=== PATIENT | female | born 1955 | race American Indian/Alaskan Native ===

== ENCOUNTER 2016-06-15 10:27 | Emergency (ER) | payer MEDICARE, OTHER ==
[2016-06-15 10:50] VITALS: BMI 24.0
[2016-06-15 10:53] VITALS: TEMP 97.8
--- NOTE | 2016-06-15 11:32 | ED PDOC ---
Arrival/HPI - General Chief Complaint: Lower Extremity Problem/Injury Time Seen by Provider: 06/15/16 11:02 Historian: Patient - History of Present Illness Narrative History of Present Illness (Text): 06/15/16 11:29 61 year old female with a past medical history that includes multiple sclerosis presents to the emergency department complaining of her usual multiple sclerosis symptoms for the past two days. She states she recently switched neurologists due to insurance changes. Patient reports intermittent bilateral lower extremity posterior numbness that feels like her usual multiple sclerosis symptoms. No other complaints at this time. Neurologist: Dr. Majano Time/Duration: < week Symptom Onset: Gradual Symptom Course: Unchanged Modifying Factors (Text): None Associated Symptoms (Text): None Past Medical History - Provider Review Nursing Documentation Reviewed: Yes - Infectious Disease Hx of Infectious Diseases: None - Tetanus Immunization Tetanus Immunization: Unknown - Cardiac Hx Cardiac Disorders: No Hx [place]: No Hx Hypertension: Yes - Pulmonary Hx Respiratory Disorders: No Hx Asthma: No - Neurological Hx Neurological Disorder: Yes HX Cerebrovascular Accident: No Hx Multiple Sclerosis: Yes Hx Transient Ischemic Attacks (TIA): No - HEENT Hx HEENT Disorder: No - Renal Hx Renal Disorder: No - Endocrine/Metabolic Hx Endocrine Disorders: Yes Hx Diabetes Mellitus Type 2: Yes - Hematological/Oncological Hx Blood Disorders: No Hx Blood Transfusions: No - Integumentary Hx Dermatological Disorder: No - Musculoskeletal/Rheumatological Hx Musculoskeletal Disorders: Yes Hx Falls: No Hx Fractures: No Hx Unsteady Gait: Yes (PT. HAS MS) Other/Comment: Multiple sclerosis, uses cane - Gastrointestinal Hx Gastrointestinal Disorders: No - Genitourinary/Gynecological Hx Genitourinary Disorders: No - Psychiatric Hx Psychophysiologic Disorder: No Hx Depression: No Hx Emotional Abuse: No Hx Physical Abuse: No Hx Substance Use: No - Past Surgical History Past Surgical History: No Previous - Surgical History Other/Comment: Pt stated she had Left fatty tissue removed FROM UNDER HER ARMS. Colonoscopy-May 2016 - Anesthesia Hx Anesthesia: Yes Hx Anesthesia Reactions: No Hx Malignant Hyperthermia: No - Suicidal Assessment Feels Threatened In Home Enviroment: No Family/Social History - Physician Review Nursing Documentation Reviewed: Yes Family/Social History: Unknown Family HX Smoking Status: Never Smoked Hx Alcohol Use: No Hx Substance Use: No Hx Substance Use Treatment: No Allergies/Home Meds Allergies/Adverse Reactions: Allergies No Known Allergies Allergy (Verified 06/15/16 10:50) Home Medications: Home Meds Medication Instructions Recorded Confirmed Sitagliptin Phosphate [Januvia] 100 mg PO DAILY 05/12/13 05/08/16 Dimethyl Fumarate [Tecfidera] 240 mg PO BID 06/29/14 05/08/16 Atenolol [Tenormin] 25 mg PO BID 01/06/16 05/08/16 Gemfibrozil [Lopid] 600 mg PO BID 01/06/16 05/08/16 metFORMIN [glucOPHAGE] 500 mg PO BID 01/06/16 05/08/16 Gabapentin [Neurontin] 100 mg PO TID 05/08/16 05/08/16 Review of Systems - Physician Review All systems were reviewed & negative as marked: Yes Physical Exam - Physical Exam Narrative Physical Exam (Text): - Review of Systems Constitutional: Normal. absent: Fatigue, Weight Change, Fevers Eyes: Normal ENT: Normal Respiratory: Normal absent: SOB, Cough, Sputum Cardiovascular: Normal absent: Chest pain, Palpitations, Syncope Gastrointestinal: Normal absent: Abdominal pain, Diarrhea, Nausea, Vomiting Genitourinary: Normal. absent: Dysuria, Frequency, Hematuria Musculoskeletal: Normal. absent: Arthralgias, Back Pain, Neck Pain Skin: Normal Neurological: Bilateral lower extremity posterior numbness absent: Focal Weakness Endocrine: Normal Hemo/Lymphatic: Normal Psychiatric: Normal - Physical exam Patient appears age appropriate, speaking full sentences without difficulty - Systems Exam Head: Present: Atraumatic, Normocephalic Pupils: Present: PERRL Extraocular Muscles: Present: EOMI Conjunctiva: Present: Normal Mouth: Present: Moist Mucous Membranes Neck: Present: Normal Range of Motion. No: MIDLINE TENDERNESS, Paraspinal Tenderness Respiratory/Chest: Present: Clear to Auscultation, Good Air Exchange. No: Respiratory Distress, Accessory Muscle Use, Tachypneic Cardiovascular: Present: Regular Rate and Rhythm, Normal S1, S2, Peripheral Pulses Present. No: Murmurs Abdomen: Present: Normal Bowel Sounds, No: Tenderness, Peritoneal Signs, Rebound, Guarding, Distention Back: Present: Normal Inspection. No: Midline Tenderness, Paraspinal Tenderness Upper Extremity: Present: Normal Inspection. No: Cyanosis, Edema Lower Extremity: Present: Normal Inspection. No: Edema Neurological: Present: GCS=15, Speech Normal, cranial nerves II through XII fully intact with no cerebellar abnormality. Ambulates with a cane without difficulty. Skin: Present: Warm, Dry, Normal Color. No: Rashes Lymphatic: Present: OX3, NI, NC Psychiatric: Present: Alert, Oriented x 3, Normal Insight, Normal Concentration. Vital Signs Reviewed: Yes Vital Signs Temp Pulse Resp BP Pulse Ox 06/15/16 12:16 68 18 145/88 100 06/15/16 10:52 97.8 F 60 17 150/76 99 Temperature: Afebrile Blood Pressure: Normal Pulse: Regular Respiratory Rate: Normal Appearance: Positive for: Well-Appearing, Non-Toxic, Comfortable Pain Distress: None Mental Status: Positive for: Alert and Oriented X 3 Medical Decision Making ED Course and Treatment: Impression: 61 year old female with a past medical history of multiple sclerosis presents with her usual symptoms of bilateral lower extremity posterior numbness. On physical exam, patient has no acute findings. Differential Diagnosis include but are not limited to: Paresthesias, MS Plan: -- Decadron -- Discharge to follow up with Neurologist Prior Visits: Notes and results from previous visits were reviewed. Patient last seen in the ED on 05/05/16 with hypoglycemia and discharged home. Progress Notes: 06/15/16 11:[address] Ricardo covering for Dr. Majano who states to give 20 mg Decadron IM and discharge patient home to follow up with the office right away after leaving the emergency room. Patient agrees with plan. Patient stable for discharge. Advised patient to return to the emergency room if symptoms worsen. All questions answered. - Medication Orders Current Medication Orders: Discontinued Medications Dexamethasone (Decadron Inj) 20 mg IM STAT STA Stop: 06/15/16 11:52 Last Admin: 06/15/16 12:01 Dose: 20 MG IM Administration Charges Document 06/15/16 12:01 EQ (Rec: 06/15/16 12:02 EQ [id number] Injection Site MAR Injection Site Left Deltoid Charges for Administration # of IM Administrations 1 - Scribe Statement The provider has reviewed the documentation as recorded by the Derrell Costa Provider Scribe Attestation: All medical record entries made by the Scribe were at my direction and personally dictated by me. I have reviewed the chart and agree that the record accurately reflects my personal performance of the history, physical exam, medical decision making, and the department course for this patient. I have also personally directed, reviewed, and agree with the discharge instructions and disposition. Disposition/Present on Arrival - Present on Arrival Any Indicators Present on Arrival: No History of DVT/PE: No History of Uncontrolled Diabetes: Yes Urinary Catheter: No History of Decub. Ulcer: No History Surgical Site Infection Following: None - Disposition Have Diagnosis and Disposition been Completed?: Yes Diagnosis: Paresthesias Disposition: TRANSF TO SNF Disposition Time: 11:53 Patient Plan: Discharge Condition: FAIR Discharge Instructions (ExitCare): Paresthesia (ED) Additional Instructions: PLEASE REPORT TO DR. RICARDO'S OFFICE RIGHT AWAY ONCE YOU LEAVE THE ER PLEASE RETURN TO THE EMERGENCY DEPARTMENT FOR NEW OR WORSENING SYMPTOMS. RETURN RIGHT AWAY IF YOU CANNOT FOLLOW UP WITH YOUR NEUROLOGIST [address] [place] [address] Referrals: Qi Box MD [Primary Care Provider] - Follow up with primary
[2016-06-15 12:17] VITALS: BP 145/88; PULSE 68; RESP 18; O2SAT 100
== END 2016-06-15 12:31 ==
LOC: ED 10:27
DX: R20.9 Unspecified disturbances of skin sensation (principal); K59.00 Constipation, unspecified; G35 Multiple sclerosis; I10 Essential (primary) hypertension
CPT/HCPCS: 96372; 99283; 99284; J1100

== ENCOUNTER 2016-06-15 16:11 | Emergency (ER) | payer MEDICARE ==
[2016-06-15 16:12] VITALS: BMI 24.0
[2016-06-15 16:32] VITALS: RESP 16; TEMP 97.4; O2SAT 98
[2016-06-15] MEDS ORDERED: Magnesium Citrate Oral SOL (300 ml) PO ONE (16:55)
--- NOTE | 2016-06-15 17:35 | ED PDOC ---
Arrival/HPI - General Chief Complaint: Pain, Chronic Time Seen by Provider: 06/15/16 16:20 Historian: Patient - History of Present Illness Narrative History of Present Illness (Text): 06/15/16 16:20 A 61 year old female, whose past medical history includes MS, presents to the emergency department complaining of a intermittent pinching/numbness sensation to the plantar surface of the bilateral feet. Patient reports similar symptoms once in a while, for which she was told her has neuropathy. Patient has medication at home but did not take them. Patient also complains of feeling constipated for the past 2 days. She notes a small bowel movement 2 days ago. She denies any incontinence, change in ability to walk, or any other complaints at this time. PMD: Dr. Box Time/Duration: Other Symptom Onset: Sudden Symptom Course: Intermittent Quality: Other Activities at Onset: Rest Context: Home Past Medical History - Provider Review Nursing Documentation Reviewed: Yes - Infectious Disease Hx of Infectious Diseases: None - Tetanus Immunization Tetanus Immunization: Unknown - Cardiac Hx Cardiac Disorders: No Hx VA: No Hx Hypertension: Yes - Pulmonary Hx Respiratory Disorders: No Hx Asthma: No - Neurological Hx Neurological Disorder: Yes HX Cerebrovascular Accident: No Hx Multiple Sclerosis: Yes Hx Transient Ischemic Attacks (TIA): No - HEENT Hx HEENT Disorder: No - Renal Hx Renal Disorder: No - Endocrine/Metabolic Hx Endocrine Disorders: Yes Hx Diabetes Mellitus Type 2: Yes - Hematological/Oncological Hx Blood Disorders: No Hx Blood Transfusions: No - Integumentary Hx Dermatological Disorder: No - Musculoskeletal/Rheumatological Hx Musculoskeletal Disorders: Yes Hx Falls: No Hx Fractures: No Hx Unsteady Gait: Yes (PT. HAS MS) Other/Comment: Multiple sclerosis, uses cane - Gastrointestinal Hx Gastrointestinal Disorders: No - Genitourinary/Gynecological Hx Genitourinary Disorders: No - Psychiatric Hx Psychophysiologic Disorder: No Hx Depression: No Hx Emotional Abuse: No Hx Physical Abuse: No Hx Substance Use: No - Past Surgical History Past Surgical History: No Previous - Surgical History Other/Comment: Pt stated she had Left fatty tissue removed FROM UNDER HER ARMS. Colonoscopy-May 2016 - Anesthesia Hx Anesthesia: Yes Hx Anesthesia Reactions: No Hx Malignant Hyperthermia: No - Suicidal Assessment Feels Threatened In Home Enviroment: No Family/Social History - Physician Review Nursing Documentation Reviewed: Yes Family/Social History: No Known Family HX Smoking Status: Never Smoked Hx Alcohol Use: No Hx Substance Use: No Hx Substance Use Treatment: No Allergies/Home Meds Allergies/Adverse Reactions: Allergies No Known Allergies Allergy (Verified 06/15/16 10:50) Home Medications: Home Meds Medication Instructions Recorded Confirmed Sitagliptin Phosphate [Januvia] 100 mg PO DAILY 05/12/13 05/08/16 Dimethyl Fumarate [Tecfidera] 240 mg PO BID 06/29/14 05/08/16 Atenolol [Tenormin] 25 mg PO BID 01/06/16 05/08/16 Gemfibrozil [Lopid] 600 mg PO BID 01/06/16 05/08/16 metFORMIN [glucOPHAGE] 500 mg PO BID 01/06/16 05/08/16 Gabapentin [Neurontin] 100 mg PO TID 05/08/16 05/08/16 Review of Systems - Physician Review All systems were reviewed & negative as marked: Yes - Review of Systems Constitutional: Normal Eyes: Normal ENT: Normal Respiratory: Normal Cardiovascular: Normal Gastrointestinal: Normal Genitourinary Female: Normal Musculoskeletal: Normal Skin: Normal Neurological: Other (numbness to the planter surface of the bilateral feet) Endocrine: Normal Hemo/Lymphatic: Normal Psychiatric: Normal Physical Exam Vital Signs Reviewed: Yes Vital Signs Temp Pulse Resp BP Pulse Ox 06/15/16 16:30 97.4 F L 77 16 148/80 98 Temperature: Afebrile Blood Pressure: Normal Pulse: Regular Respiratory Rate: Normal Appearance: Positive for: Well-Appearing, Non-Toxic, Comfortable Pain Distress: None Mental Status: Positive for: Alert and Oriented X 3 - Systems Exam Head: Present: Atraumatic, Normocephalic Pupils: Present: PERRL Extroacular Muscles: Present: EOMI Conjunctiva: Present: Normal Mouth: Present: Moist Mucous Membranes Neck: Present: Normal Range of Motion Respiratory/Chest: Present: Clear to Auscultation, Good Air Exchange. No: Respiratory Distress, Accessory Muscle Use Cardiovascular: Present: Regular Rate and Rhythm, Normal S1, S2. No: Murmurs Abdomen: Present: Normal Bowel Sounds. No: Tenderness, Distention, Peritoneal Signs Back: Present: Normal Inspection Upper Extremity: Present: Normal Inspection. No: Cyanosis, Edema Lower Extremity: Present: Other (decrease sensation to the bilateral feet). No : Edema Neurological: Present: GCS=15, CN II-XII Intact, Speech Normal, Gait Normal Skin: Present: Warm, Dry, Normal Color. No: Rashes Psychiatric: Present: Alert, Oriented x 3, Normal Insight, Normal Concentration Medical Decision Making ED Course and Treatment: 06/15/16 16:20 Impression: A 61 year old female with numbness to plantar aspect of the bilateral feet and constipation. Differential Diagnosis included but are not limited to: Neuropathy vs Constipation Plan: -- Magnesium Citrate and Gabapentin -- Reassess and disposition Progress Notes: 06/15/16 17:30 On reevaluation the patient feels better and is in no acute distress. Patient's gait is at baseline. I have discussed the results and plan with the patient, who expresses understanding. Patient given the opportunity to ask question, all questions were answered and there is agreement with the plan to discharge the patient home. Patient is stable for discharge. Patient was instructed to follow up with neurologist tomorrow or return if symptoms persist/worsen or new concerning symptoms arise. Patient did go to her Neurologist today but she waited 2 hours and then they couldn't find her chart. They asked her to come back tomorrow. She will follow up - Medication Orders Current Medication Orders: Discontinued Medications Gabapentin (Neurontin) 100 mg PO STAT STA PRN Reason: Protocol Stop: 06/15/16 16:59 Last Admin: 06/15/16 17:19 Dose: 100 MG Behavioural Document 06/15/16 17:19 [place] (Rec: 06/15/16 17:19 [place] [id number]) Maintenance Maintenance Dose Yes Magnesium Citrate (Citrate Of Mag) 300 ml PO ONCE ONE Stop: 06/15/16 16:56 Last Admin: 06/15/16 17:19 Dose: 300 ML - Scribe Statement The provider has reviewed the documentation as recorded by the Scribe Ankit Hernandez Provider Scribe Attestation: All medical record entries made by the Scribe were at my direction and personally dictated by me. I have reviewed the chart and agree that the record accurately reflects my personal performance of the history, physical exam, medical decision making, and the department course for this patient. I have also personally directed, reviewed, and agree with the discharge instructions and disposition. Disposition/Present on Arrival - Present on Arrival Any Indicators Present on Arrival: Yes History of DVT/PE: No History of Uncontrolled Diabetes: Yes Urinary Catheter: No History of Decub. Ulcer: No History Surgical Site Infection Following: None - Disposition Have Diagnosis and Disposition been Completed?: Yes Diagnosis: Paresthesias, Constipation Disposition: HOME/ ROUTINE Disposition Time: 17:30 Patient Plan: Discharge Patient Problems: Current Active Problems Problem Status Diagnosed Constipation Acute Paresthesias Acute Condition: GOOD Discharge Instructions (ExitCare): Constipation (DC), Paresthesia (ED) Prescriptions: Docusate [Colace] 100 mg PO BID #60 cap Referrals: Qi Box MD [Primary Care Provider] - Follow up with primary Marcos Majano MD [Medical Doctor] - Follow up with primary
[2016-06-15 21:52] VITALS: BP 142/80; PULSE 70
== END 2016-06-15 18:12 | disposition home or self-care (01) ==
LOC: ED 16:11
DX: R20.9 Unspecified disturbances of skin sensation (principal); K59.00 Constipation, unspecified; G35 Multiple sclerosis; I10 Essential (primary) hypertension

== ENCOUNTER 2016-08-24 23:02 | Inpatient (IN) | payer MEDICARE, OTHER ==
[2016-08-24 23:12] VITALS: BMI 28.3
[2016-08-25] MEDS ORDERED: Insulin Regular 1 UNITS/0.01 ML ML SC STA ×2 (00:02→02:18)
[2016-08-25] MEDS ORDERED: Sodium Chloride 0.9% 1,000 ML IV STA (00:02)
--- NOTE | 2016-08-25 00:17 | ED PDOC ---
Arrival/HPI - General Chief Complaint: High Blood Sugar Time Seen by Provider: 08/24/16 23:18 Historian: Patient - History of Present Illness Narrative History of Present Illness (Text): 08/25/16 00:13 Elsia Vidales is a 61 year old female, with a history of diabetes on Januvia , hypertension, and multiple sclerosis, presents to the emergency department complaining of elevated blood glucose level. Patient is compliant with her medications. Patient checked her glucose level today because she was "not feeling well". Denies any fever, chills, headache, dizziness, chest pain, shortness of breath, nausea, vomiting, diarrhea, urinary symptoms, or any other complaints at this time. Time/Duration: 24 hours Symptom Onset: Gradual Severity Level: Mild Activities at Onset: Light Context: Home Past Medical History - Provider Review Nursing Documentation Reviewed: Yes - Infectious Disease Hx of Infectious Diseases: None - Tetanus Immunization Tetanus Immunization: Unknown - Cardiac Hx Cardiac Disorders: No Hx MS: No Hx Hypertension: Yes - Pulmonary Hx Respiratory Disorders: No Hx Asthma: No - Neurological Hx Neurological Disorder: Yes HX Cerebrovascular Accident: No Hx Multiple Sclerosis: Yes Hx Transient Ischemic Attacks (TIA): No - HEENT Hx HEENT Disorder: No - Renal Hx Renal Disorder: No - Endocrine/Metabolic Hx Endocrine Disorders: Yes Hx Diabetes Mellitus Type 2: Yes - Hematological/Oncological Hx Blood Disorders: No Hx Blood Transfusions: No - Integumentary Hx Dermatological Disorder: No - Musculoskeletal/Rheumatological Hx Musculoskeletal Disorders: Yes Hx Falls: No Hx Fractures: No Hx Unsteady Gait: Yes (PT. HAS MS) Other/Comment: Multiple sclerosis, uses cane - Gastrointestinal Hx Gastrointestinal Disorders: No - Genitourinary/Gynecological Hx Genitourinary Disorders: No - Psychiatric Hx Psychophysiologic Disorder: No Hx Depression: No Hx Emotional Abuse: No Hx Physical Abuse: No Hx Substance Use: No - Past Surgical History Past Surgical History: No Previous - Surgical History Other/Comment: Pt stated she had Left fatty tissue removed FROM UNDER HER ARMS. Colonoscopy-May 2016 - Anesthesia Hx Anesthesia: Yes Hx Anesthesia Reactions: No Hx Malignant Hyperthermia: No - Suicidal Assessment Feels Threatened In Home Enviroment: No Family/Social History - Physician Review Nursing Documentation Reviewed: Yes Family/Social History: No Known Family HX Smoking Status: Never Smoked Hx Alcohol Use: No Hx Substance Use: No Hx Substance Use Treatment: No Allergies/Home Meds Allergies/Adverse Reactions: Allergies No Known Allergies Allergy (Verified 06/15/16 10:50) Home Medications: Home Meds Medication Instructions Recorded Confirmed Sitagliptin Phosphate [Januvia] 100 mg PO DAILY 05/12/13 05/08/16 Dimethyl Fumarate [Tecfidera] 240 mg PO BID 06/29/14 05/08/16 Atenolol [Tenormin] 25 mg PO BID 01/06/16 05/08/16 Gemfibrozil [Lopid] 600 mg PO BID 01/06/16 05/08/16 metFORMIN [glucOPHAGE] 500 mg PO BID 01/06/16 05/08/16 Gabapentin [Neurontin] 100 mg PO TID 05/08/16 05/08/16 Review of Systems - Physician Review All systems were reviewed & negative as marked: Yes - Review of Systems Constitutional: Normal. absent: Fatigue, Fevers Respiratory: Normal. absent: SOB, Cough, Sputum Cardiovascular: Normal. absent: Chest Pain, Palpitations Gastrointestinal: Normal. absent: Abdominal Pain, Diarrhea, Nausea, Vomiting Genitourinary Female: Normal Neurological: Normal. absent: Headache, Dizziness Psychiatric: Normal Physical Exam Vital Signs Reviewed: Yes Vital Signs Temp Pulse Resp BP Pulse Ox 08/24/16 23:10 99.2 F 74 18 155/94 H 98 Temperature: Afebrile Blood Pressure: Normal Pulse: Regular Respiratory Rate: Normal Appearance: Positive for: Well-Appearing, Non-Toxic, Comfortable Pain Distress: None Mental Status: Positive for: Alert and Oriented X 3 Finger Stick Blood Glucose: 454 - Systems Exam Head: Present: Atraumatic, Normocephalic Pupils: Present: PERRL Conjunctiva: Present: Normal Mouth: Present: Moist Mucous Membranes Respiratory/Chest: Present: Clear to Auscultation, Good Air Exchange. No: Respiratory Distress, Accessory Muscle Use Cardiovascular: Present: Regular Rate and Rhythm, Normal S1, S2. No: Murmurs Abdomen: Present: Normal Bowel Sounds. No: Tenderness, Distention, Peritoneal Signs Upper Extremity: Present: Normal Inspection. No: Cyanosis, Edema Lower Extremity: Present: Normal Inspection. No: Edema Neurological: Present: GCS=15, CN II-XII Intact, Speech Normal, Motor Func Grossly Intact, Normal Sensory Function Skin: Present: Warm, Dry, Normal Color. No: Rashes Psychiatric: Present: Alert, Oriented x 3, Normal Insight, Normal Concentration Medical Decision Making ED Course and Treatment: 08/25/16 00:19 Impression: A 61 year old female who presents to the emergency department complaining of elevated blood glucose level. Differential Diagnosis included but are not limited to: hyperglycemia Plan: -- Labs -- EKG -- Labs, cardiac enzymes -- Chest X-ray -- Insulin -- IV fluids -- Urinalysis -- Reassess and disposition Progress Notes: 08/25/16 02:12 Case discussed with who is aware and agrees with the plan to observe patient at remote telemetry. Accepts patient under her service. - Lab Interpretations Lab Results: 08/25/16 00:39 08/25/16 00:49 Lab Results 08/25/16 00:49: Sodium 136, Chloride 94 L, Potassium 4.2, Carbon Dioxide 31, Anion Gap 15, BUN 9, Creatinine 0.8, Est GFR ( Amer) > 60, Est GFR (Non- Af Amer) > 60, Random Glucose 470 H* D, Calcium 9.4, Total Bilirubin 0.6, AST 20 , ALT 20, Alkaline Phosphatase 102, Lactate Dehydrogenase 514, Total Creatine Kinase 50, Troponin I < 0.01, Total Protein 8.1, Albumin 4.5, Globulin 3.7, Albumin/Globulin Ratio 1.2 08/25/16 00:39: pO2 41, VBG pH 7.32, VBG pCO2 66.0 H*, VBG HCO3 34.0 H, VBG Total CO2 36.0 H, VBG O2 Sat (Calc) 75.3 H, VBG Base Excess 5.7 H, VBG Potassium 4.4, Sodium 136.0, Chloride 98.0, Glucose 469 H*, Lactate 2.0, FiO2 21.0, Venous Blood Potassium 4.4 08/25/16 00:39: WBC 8.6 D, RBC 4.17, Hgb 11.9 L, Hct 34.7 L, MCV 83.2, MCH 28.5 , MCHC 34.3, RDW 13.8, Plt Count 178, MPV 12.2 H 08/25/16 00:39: PT 11.0, INR 1.02, APTT 28.0 I have reviewed the lab results: Yes - RAD Interpretation Narrative RAD Interpretations (Text): 08/25/16 01:47 CXR- No acute process Radiology Orders: 08/25/16 00:01 CHEST PORTABLE [RAD] Stat Data Technical Lead: ED Physician - EKG Interpretation EKG Interpretation (Text): 08/25/16 01:47 NSR@ [id number] Anterolateral T wave changes Interpreted by ED Physician: Yes Type: 12 lead EKG - Medication Orders Current Medication Orders: Discontinued Medications Sodium Chloride (Sodium Chloride 0.9%) 1,000 mls @ 999 mls/hr IV .Q1H1M STA Stop: 08/25/16 01:02 Last Admin: 08/25/16 00:29 Dose: 999 mls/hr Insulin Human Regular (Humulin R) 5 units SC STAT STA Stop: 08/25/16 00:03 Last Admin: 08/25/16 00:28 Dose: 5 units - Scribe Statement The provider has reviewed the documentation as recorded by the Madelynibe Prashanth Lewis Provider Attestation: Provider Scribe Attestation: All medical record entries made by the Scribe were at my direction and personally dictated by me. I have reviewed the chart and agree that the record accurately reflects my personal performance of the history, physical exam, medical decision making, and the department course for this patient. I have also personally directed, reviewed, and agree with the discharge instructions and disposition. Disposition/Present on Arrival - Present on Arrival Any Indicators Present on Arrival: No History of DVT/PE: No History of Uncontrolled Diabetes: Yes Urinary Catheter: No History of Decub. Ulcer: No History Surgical Site Infection Following: None - Disposition Have Diagnosis and Disposition been Completed?: Yes Diagnosis: Uncontrolled diabetes mellitus Disposition: HOSPITALIZED Disposition Time: 02:11 Patient Plan: Observation Patient Problems: Current Active Problems Problem Status Onset Uncontrolled diabetes mellitus Acute Condition: STABLE Referrals: Qi Box MD [Primary Care Provider] - Follow up with primary
[2016-08-25 00:56] LABS: VENOUS BLOOD GAS BASE EXCESS 5.7 mmol/L (0.0-2.0); VENOUS BLOOD PH 7.32 (7.32-7.43)
[2016-08-25 01:07] LABS: HEMATOCRIT 34.7 % (36.0-48.0); MEAN CELL VOLUME 83.2 fL (80.0-105.0); MEAN CORPUSCULAR HEMOGLOBIN 28.5 pg (25.0-35.0); MEAN CORPUSCULAR HGB CONC 34.3 g/dl (31.0-37.0); MEAN PLATELET VOLUME 12.2 fl (7.0-11.0); RED CELL DISTRIBUTION WIDTH 13.8 % (11.5-14.5); WHITE BLOOD COUNT 8.6 10^3/ul (4.5-11.0)
[2016-08-25 01:12] LABS: INR 1.02 (0.93-1.08)
[2016-08-25 01:15] LABS: ALB/GLOB RATIO 1.2 (1.1-1.8); ALKALINE PHOSPHATASE 102 U/L (38-133); ALT/SGPT 20 U/L (7-56); AST/SGOT 20 U/L (15-39); BILIRUBIN,TOTAL 0.6 mg/dL (0.2-1.3); BLOOD UREA NITROGEN 9 mg/dL (7-21); CALCIUM 9.4 mg/dL (8.4-10.5); CARBON DIOXIDE 31 mmol/L (21-33); CHLORIDE 94 mmol/L (95-110); GFR AFRICAN-AMERICAN > 60; POTASSIUM 4.2 mmol/L (3.6-5.0); SODIUM 136 mmol/L (132-148); TOTAL PROTEIN 8.1 g/dL (5.8-8.3)
[2016-08-25 01:19] LABS: GLUCOSE,RANDOM 470 mg/dL (70-110)
[2016-08-25 01:33] LABS: TROPONIN I < 0.01 ng/mL
[2016-08-25] MEDS ORDERED: Pneumococcal 23-Valent Vaccine IM ONE (04:39)
[2016-08-25 05:39] LABS: URINE BILIRUBIN NEGATIVE (NEGATIVE); URINE BLOOD NEGATIVE (NEGATIVE); URINE GLUCOSE (UA) >=1000 mg/dL (NEGATIVE); URINE KETONE NEGATIVE (NEGATIVE); URINE LEUKOCYTE ESTERASE NEGATIVE Leu/uL (NEGATIVE); URINE PROTEIN NEGATIVE mg/dL (<30 mg/dL); URINE UROBILINOGEN 0.2 E.U./dL (<1 E.U./dL)
[2016-08-25 05:55] LABS: URINE APPEARANCE CLEAR (CLEAR); URINE COLOR YELLOW (YELLOW)
[2016-08-25] MEDS: Insulin Reg-MEDIUM-Coverage SC SCH ×3 (07:30→17:45)
--- NOTE | 2016-08-25 08:32 | RAD ---
HISTORY: fever COMPARISON: 01/08/2016 FINDINGS: LUNGS: No active pulmonary disease. PLEURA: No significant pleural effusion identified, no pneumothorax apparent. CARDIOVASCULAR: Normal. OSSEOUS STRUCTURES: No significant abnormalities. VISUALIZED UPPER ABDOMEN: Normal. OTHER FINDINGS: None. IMPRESSION: No active disease.
[2016-08-25] MEDS: DIMETHYL FUMARATE 240 MG PO SCH ×2 (10:00→17:54)
[2016-08-25] MEDS: cefTRIAXone 1 gm 1 GM/100 ML BAG IVPB SCH (10:00)
--- NOTE | 2016-08-25 10:03 | CARD ---
APPROVED REPORT EKG Measurement Heart [id number] MD [id number] <Conclusion> Normal sinus rhythm T wave abnormality, consider anterolateral ischemia
--- NOTE | 2016-08-25 13:18 | CON ---
DATE: 08/25/2016 REASON FOR CONSULTATION: Cardiac evaluation, admitted with uncontrolled diabetes, abnormal EKG. BRIEF CLINICAL HISTORY: This is a 61-year-old obese female morbidly with past medical history of tyler betes for many years, 20 years; history of hypertension 20 years and multiple sclerosis, presented wi th uncontrolled diabetes. Mother is at the bedside. Denies any chest pain, shortness of breath, any palpitation. PAST HISTORY: Significant for diabetes, hypertension, hyperlipidemia. SOCIAL HISTORY: Denies any smoking. Denies any history of alcohol abuse. ALLERGIES: No known drug allergy. PAST SURGICAL HISTORY: Nothing significant. REVIEW OF SYSTEMS: As per HPI. Complained of some shortness of breath, dyspnea on exertion. PHYSICAL EXAMINATION: As follows: VITAL SIGNS: Temperature afebrile, heart rate 60, blood pressure 157/90. HEENT: PERRLA, intact. NECK: Supple. No carotid bruits. No thyromegaly. CHEST: Clear to auscultation. HEART: S1, S2 regular. ABDOMEN: Soft. EXTREMITIES: Clubbing and cyanosis negative. BLOOD WORKUP: As follows: WBC 8.6, hemoglobin ____, hematocrit 34.6, platelet count 178. Chemistry shows sodium 136, potassium 4.2, chloride 94, carbon dioxide ____, anion gap of 15, BUN 9, creatinin e 0.8. Blood sugar 470. Troponin 0.01. EKG shows normal sinus, T-wave inversion in V2, V6 and ante rior precordial lead. IMPRESSION: Abnormal T-wave anterior precordial lead, ____ suggestive of ischemia, rule out underlyi ng coronary artery disease. Diabetes, obesity, uncontrolled diabetes, blood sugar 470, hypertension uncontrolled. Multiple risk factors for coronary artery disease. Suggest echo and stress test yamilet conde. Discussed with mother and the patient. ____ lipid profile, TSH, hemoglobin A1c. Further recom mendations depending upon hospital course. We will follow with you. Thank you, Dr. Box, for providing the opportunity in taking care of the patient. We will add baby aspirin in the current regimen as well and we will add CLARIBEL inhibitors and low dose o f beta lj. We will follow with you. Mohammad Blaine MD cc: [id number] TT: 08/25/2016 13:18:01 Confirmation # [id number] Dictation # [id number] sn
--- NOTE | 2016-08-25 14:22 | CON ---
DATE: 08/25/2016 HISTORY OF PRESENT ILLNESS: Shortly, the patient is a 61-year-old -[place] female with multi ple medical issues including diabetes, hypertension, multiple sclerosis. The patient came to the [facility] Room complaining of elevated blood sugar, as well as patient was in a lethargic state and was not feeling well. Psych consult was called for evaluation of possible depressive symptoms. The bryce ent was seen and evaluated. The patient denied being depressed, reported that she lost her boyfriend of 19 years last month. She is still in a grieving process, but patient denied changing in appetite and sleep. Denied thoughts of dying, denied thoughts of killing herself. The patient denied being depressed. The patient denied feeling anxious. The patient reported no psychotic symptoms, no hallu cinations, denied paranoid ideation. The patient does not present as psychotic. SOCIAL HISTORY: The patient denied using drugs, denied using alcohol, denied smoking. PAST PSYCHIATRIC HISTORY: The patient denies being evaluated by psychiatrist, denied suicidal attemp t, denied being on any psychotropic medications. VITAL SIGNS: Reviewed. Temperature 98.2, pulse is 60, blood pressure 157/91, respirations 20, oxyge n saturation is 98. MENTAL STATUS EXAMINATION: The patient presented to be alert and oriented. Seems to be disengaged i nto the conversation. The patient was more interested to eat than to talk to this senior medical writer. Intermitt ent eye contact. Speech was underproductive, yes/no answers. Mood described as, "I'm not depressed. " Affect was constricted but reactive; mood congruent. Thought process seems to be coherent and goa l directed. Thought content: The patient denies visual, auditory, or tactile hallucinations. Denie d paranoid ideations. The patient denied thoughts of harming herself or others, denied intent or sudhakar n. Insight and judgment are fair. Impulses are well controlled. IMPRESSION: Rule out adjustment disorder, rule out grieving, rule out mood disorder due to general m edical condition. PLAN: Supportive therapy was provided. Empathic listening was provided. The patient was appreciati ve. The patient does not want to be on medications. The patient denied being depressed, denied thou ghts of killing herself or others. The patient reported to have good appetite and sleep. From the p sychiatric standpoint, the patient is not in danger to self or others, could be discharged back home. The patient is aware if she wants to talk to this senior medical writer, asked medical team to call this senior medical writer. Will sign off. Should you have any questions, give me a call back. Thank you very much for letting me participate in the care of your patient. Sindi Suazo MD cc: [id number] TT: 08/25/2016 14:21:53 Confirmation # [id number] Dictation # [id number] mn
--- NOTE | 2016-08-25 19:03 | CP.PCM.PN ---
<Hola Recinos - Last Filed: 08/25/16 18:59> Subjective - Date & Time of Evaluation Date of Evaluation: 08/25/16 Time of Evaluation: 18:59 - Subjective Subjective: This note is in response to a code star called at 6:55PM The patient had a witnessed fall after tripping over the table when attempting to get out of bed to her chair on 3RS. She had no loss of consciousness; she fell directly on her bottom and was able to recall the entire event. She was able to pull herself off of the floor immediately with light assistance. She normally ambulates with a cane, and was encouraged to ask for help when she wants to move around the hospital in the future. Patient denies any TONY, CP, dizziness, double vision, abdominal pain, N/V/D, dysuria/freq/urg, or lower extremity pain/parathesias. VSS: HR 90, BP: 140/85, RR 18, Finger stick 188. Neuro: Patient is ANOx3, responding to questions appropriately, normal gait, able to move all extremities Heart: RRR, no murmurs rubs or gallops Abdomen: Soft, non tender non distended Skin: Warm, dry, no suspicious rashes Lungs: CTA b/l Eyes: No nystagmus, PERRLA, EOMI Psych: depressed affect; states she lost her fiance of 18 years 2 weeks ago, tearful, but appropriate A/P: No labs to order for now, patient is not reporting any pain or neurological symptoms. Patient encouraged to ask for help when ambulating. Should neurological status change, will order more testing. Dr. Hola Recinos PGY1 Night float Case discussed with Dr. Vitale Objective - Vital Signs/Intake and Output Vital Signs (last 24 hours): Temp Pulse Resp BP Pulse Ox 98.4 F 80 18 150/90 97 08/25/16 16:00 08/25/16 17:55 08/25/16 16:00 08/25/16 17:55 08/25/16 16:00 Intake and Output: 08/25/16 08/25/16 06:59 18:59 Intake Total 600 Balance 600 - Medications Medications: Current Medications Albuterol/Ipratropium (Duoneb 3 Mg/0.5 Mg (3 Ml) Ud) 3 ml IH [id number] SONDRA Atenolol (Tenormin) 25 mg PO BID [facility] Last Admin: 08/25/16 17:55 Dose: 25 mg Docusate Sodium (Colace) 100 mg PO BID [facility] Last Admin: 08/25/16 17:54 Dose: 100 mg Gabapentin (Neurontin) 100 mg PO TID SONDRA PRN Reason: Protocol Last Admin: 08/25/16 17:54 Dose: 100 mg Gemfibrozil (Lopid) 600 mg PO BID [facility] Last Admin: 08/25/16 17:54 Dose: 600 mg Guaifenesin (Robitussin) 100 mg PO Q6 PRN PRN Reason: Cough Ceftriaxone Sodium (Rocephin 1 Gram Ivpb) 1 gm in 100 mls @ 100 mls/hr IVPB DAILY [facility] PRN Reason: Protocol Last Admin: 08/25/16 10:00 Dose: 100 mls/hr Insulin Human Regular (Humulin R Med) 0 units SC ACHS [facility] PRN Reason: Protocol Last Admin: 08/25/16 17:45 Dose: 5 units Lisinopril (Zestril) 10 mg PO DAILY [facility] Last Admin: 08/25/16 12:30 Dose: 10 mg Metformin HCl (Glucophage) 1,000 mg PO BID [facility] Last Admin: 08/25/16 17:54 Dose: 1,000 mg Montelukast Sodium (Singulair) 10 mg PO HS [facility] Non-Formulary Medication (Dimethyl Fumarate [Tecfidera]) 240 mg PO BID [facility] Last Admin: 08/25/16 17:54 Dose: Not Given Sitagliptin Phosphate (Januvia) 50 mg PO DAILY [facility] Last Admin: 08/25/16 09:32 Dose: 50 mg - Labs Labs: PT 11.0 Seconds (9.9-11.8) 08/25/16 00:39 INR 1.02 (0.93-1.08) 08/25/16 00:39 APTT 28.0 Seconds (23.7-30.8) 08/25/16 00:39 <Dutch Vitale P - Last Filed: 09/07/16 19:28> Objective - Vital Signs/Intake and Output Vital Signs (last 24 hours): Temp Pulse Resp BP Pulse Ox 98.6 F 64 18 138/68 99 08/28/16 08:44 08/28/16 11:39 08/28/16 08:44 08/28/16 11:39 08/28/16 08:44 - Labs Labs: PT 11.0 Seconds (9.9-11.8) 08/25/16 00:39 INR 1.02 (0.93-1.08) 08/25/16 00:39 APTT 28.0 Seconds (23.7-30.8) 08/25/16 00:39 Attending/Attestation - Attestation I have personally seen and examined this patient.: Yes I have fully participated in the care of the patient.: Yes I have reviewed all pertinent clinical information, including history, physical exam and plan: Yes
[2016-08-25] MEDS: Albuterol-Ipratrop 3 mg / 0.5 (3 ml) UD IH SCH (19:50)
--- NOTE | 2016-08-25 20:19 | CON ---
DATE: 08/25/2016 REFERRING PHYSICIAN: Dr. Box. REASON FOR CONSULT: Sleep apnea syndrome, chronic lung disease, admitted with uncontrolled diabetes. HISTORY OF PRESENT ILLNESS: This is a 61-year-old obese female with a history of diabetes, hypertens ion, history of multiple sclerosis, comes in to Emergency Room lethargic, has a cough. She has known sleep apnea syndrome, does not use CPAP, has loud snoring, daytime sleepy and tired. Presently, the re is no nausea, no vomiting, no diarrhea. Does have a cough though. PAST MEDICAL HISTORY: Hypertension, diabetes, hyperlipidemia. ALLERGIES: None known. SOCIAL HISTORY: No history of smoking or alcohol use. FAMILY HISTORY: No significant cardiopulmonary disease reported. MEDICATIONS: She is on Colace 100 mg twice a day. She has been on dimethyl, fumarate 240 mg twice a day, metformin 1000 mg twice a day, insulin coverage, Januvia 50 mg daily, Lopid 600 mg twice a day, Neurontin 100 mg 3 times a day, Robitussin 100 mg q. 6 hours p.r.n., Rocephin 1 g IV daily, Tenormin 25 mg twice a day, Zestril 10 mg daily. REVIEW OF SYSTEMS: No headache, no rhinitis. Does have a cough, clear sputum production. No chest pain, no nausea, no vomiting, no abdominal pain. No dysuria. No leg pain, no leg swelling. Has sle ep apnea, not really compliant with CPAP. PHYSICAL EXAMINATION: GENERAL: Lying in the bed in no acute distress. VITAL SIGNS: Temp is 98, heart rate 65, respiratory rate is 20, blood pressure 150/90, pulse ox 98% on room air. HEENT: Moist mucous membrane. Crowded airway. Mallampati score is 4. NECK: Short, thick neck. LUNGS: Has a few scattered rhonchi. HEART: S1, S2. ABDOMEN: Soft, nontender. No organomegaly. EXTREMITIES: There is no edema. NEUROLOGIC: Awake, alert, follows simple commands. LABORATORY DATA: Shows hemoglobin 11.9, hematocrit 34.7, WBC 8.6, platelet count is 178. INR 1.02, PTT is 28. VBG showed pH 7.32, pCO2 is 66, O2 is 41. This is on nasal cannula. Sodium 136, potassi um 4.2, chloride 94, bicarbonate 31, BUN 9, creatinine 0.8, glucose 470, AST 20, ALT 20, alkaline chely sphatase is 120. Troponin less than 0.01. Albumin 4.5. Chest x-ray done from ER shows no active pu lmonary disease. IMPRESSION AND PLAN: Uncontrolled diabetes, hypertension, known sleep apnea syndrome, does not use C PAP. May have acute bronchitis. I spoke to the patient in detail. All the questions answered. Spo ke about sleep apnea syndrome and its consequences. The patient is willing to start CPAP tonight. W e will add inhaled bronchodilator. Also seen by psychiatry. May have adjustment disorder. We will s uggest PFT as the outpatient. Followup on CPAP. May need to review her downloads. Will follow with you. Komal Nayak MD cc: [id number] TT: 08/25/2016 20:18:02 Confirmation # [id number] Dictation # [id number] willy
[2016-08-26] MEDS: Albuterol-Ipratrop 3 mg / 0.5 (3 ml) UD IH SCH ×4 (02:15→21:05)
[2016-08-26 03:49] LABS: CHOLESTEROL 131 mg/dL (130-200)
[2016-08-26 04:02] LABS: TROPONIN I < 0.01 ng/mL
[2016-08-26 04:06] LABS: IRON 41 ug/dL (45-180)
--- NOTE | 2016-08-26 08:03 | HP ---
CHIEF COMPLAINT: High blood sugar, not feeling very well. HISTORY OF PRESENT ILLNESS: The patient is a 61-year-old female with history of diabetes, on Januvia; hypertension and multiple sclerosis who came to the Emergency Department complaining of elevated blood glucose level. According to the patient, she is compliant with all her medication, but I doubt. The patient checked her glucose level today because she was not feeling well. Denies any fever, chills, headache, dizziness, chest pain, shortness of breath, nausea, vomiting, diarrhea or urinary symptoms, or other complaints. PAST MEDICAL HISTORY: Hypertension, MS; diabetes mellitus, type 2; history of musculoskeletal pain, ataxia. FAMILY HISTORY: Father and mother noncontributory. HABITS: Never smoked. No drugs, no ethanol. ALLERGIES: The patient is not allergic with any medications. HOME MEDICATIONS: Januvia, dimethyl fumarate, Tenormin, Lopid, Glucophage and Neurontin. REVIEW OF SYSTEMS: The patient is seen and examined on the bedside. Mother was sitting on the bedside also. Feeling fatigue and tired. No shortness of breath, cough or sputum production. No chest pain or palpitation. No abdominal pain, diarrhea, nausea or vomiting. No headache, no dizziness. PHYSICAL EXAMINATION: VITAL SIGNS: Temperature is 99.2, pulse 74, respiratory rate 18, blood pressure 150/94, pulse ox 98, T-max of 99.2. HEENT: Head normocephalic, atraumatic. Eyes: PERRLA. Extraocular movements intact. Conjunctivae are clear. Nose patent. Mucous membranes moist. NECK: Supple. No carotid bruit, JVD or thyromegaly. CHEST: Bilaterally symmetrical. HEART: S1, S2 positive. LUNGS: Clear to auscultation. ABDOMEN: Soft. Bowel sounds positive. No organomegaly. EXTREMITIES: No edema, no cyanosis. NEUROLOGIC: The patient is awake, alert, moving all 4 extremities. No focal deficit. LABORATORY DATA: White blood cells 8.6, hemoglobin 11.9, hematocrit 34.7, platelets 178. Sodium 133, potassium 4.2, BUN 9, creatinine 0.8. Glucose of 352, 129, 306, 470. AST 20, ALT 20. ASSESSMENT AND PLAN: The patient is a 61-year-old lady with anemia, uncontrolled diabetes mellitus, noncompliant with medication, seen by Dr. Nayak , history of hypertension, hypercholesterolemia, hypertriglyceridemia, came with uncontrolled diabetes, known sleep apnea syndrome, does not want to use CPAP, acute bronchitis. Dr. Nayak educated the patient; willing to start CPAP this night. Dr. Nayak added inhaled bronchodilators. The patient seen by Dr. Hola Recinos. The patient has history of fall today and there is fall code in the evening after my round. The patient is depressed because of recent 's . I called consult with Dr. Sindi Suazo. The patient's ataxia may be due to multiple sclerosis. Seen by psychiatrist, digital composer ( Dr. Valladares). Needs physical therapy. Aberrant T wave anterior precordial lead, suggestive of ischemia, rule out underlying coronary artery disease, obesity, multiple risk factors for coronary artery disease. Suggest echo stress test tomorrow. Discussion done with the patient and patient's daughter. Education done to be compliant. Repeat labs. Will follow up. Qi Box MD cc: [id number] TT: 08/26/2016 08:02:09 javid FENG
[2016-08-26] MEDS: Insulin Reg-MEDIUM-Coverage SC SCH ×2 (08:12→12:13)
[2016-08-26] MEDS ORDERED: Aminophylline 25 mg/ml Inj ONE (10:28)
[2016-08-26] MEDS: DIMETHYL FUMARATE 240 MG PO SCH ×2 (12:12→18:25)
[2016-08-26 13:05] LABS: FOLATE 4.9 ng/mL
[2016-08-26] MEDS: cefTRIAXone 1 gm 1 GM/100 ML BAG IVPB SCH (14:15)
--- NOTE | 2016-08-26 16:20 | PN ---
DATE: 08/26/2016 REFERRING PHYSICIAN: Dr. Box. SUBJECTIVE: She is sitting side of the bed. Night was unremarkable. Tolerated BiPAP well. Still h as some cough with sputum production. No nausea, no vomiting. Denies any abdominal pain. No dysuri a. No leg pain or leg swelling. OBJECTIVE: GENERAL: No acute distress. VITAL SIGNS: Temperature is 98, heart rate is 83, respiratory rate is 20, blood pressure 162/95, pul se ox 98% on supplemental oxygen. HEENT: Moist mucous membrane. Crowded airway. NECK: Supple. No JVD. LUNGS: Have scattered rhonchi. HEART: S1, S2. ABDOMEN: Soft, nontender. No organomegaly. EXTREMITIES: There is no edema. NEUROLOGIC: Awake, alert, follows simple command. MEDICATIONS: She is on Amaryl 2 mg ACBD, DuoNeb q. 6 hours, metformin 500 mg ACBD, insulin coverage, Januvia 100 mg ACBD, Lopid 600 mg twice a day, Neurontin 100 mg 3 times daily, Robitussin p.r.n. bas is, Rocephin 1 gram daily, Singulair 10 mg daily, Tenormin 25 mg daily, Zestril is 10 mg daily. LABORATORY DATA: Shows that LDH today 433. Troponin negative. Cholesterol is 131. Hemoglobin A1c 8.9, iron is 41. She had echocardiogram and myocardial stress test done; both reports are pending. IMPRESSION AND PLAN: Uncontrolled diabetes, hypertension, sleep apnea syndrome, also has hypertensio n. Will increase CLARIBEL inhibitors. Continue CPAP while sleeping, bronchodilator, gastric prophylaxis, DVT prophylaxis, fall precaution. Outpatient PFT and sleep study. Thank you, and will follow with you. Komal Nayak MD cc: [id number] TT: 08/26/2016 16:19:39 Confirmation # [id number] Dictation # [id number] mn
[2016-08-26] MEDS: guaiFENesin 100 mg/5 ml Syrup UD PO PRN (18:31)
[2016-08-26] MEDS: Insulin Reg-LOW-Coverage SC SCH ×2 (18:31→22:11)
--- NOTE | 2016-08-26 18:40 | PN ---
DATE: 08/26/2016 The patient is in room 376, bed 1. REASON FOR CONSULTATION: Uncontrolled diabetes, abnormal EKG, cardiac evaluation. HISTORY OF PRESENT ILLNESS: A 61-year-old obese female with past medical history of diabetes for man y years, hypertension, both for 20 years, multiple sclerosis apparently with uncontrolled diabetes. The patient denies chest pain, shortness of breath, or palpitation. Found to have abnormal ST-T becerril ges suggestive of ischemia on the EKG. PHYSICAL EXAMINATION: VITAL SIGNS: Blood pressure 162/95, respirations 20, pulse 83, temperature 98.3. HEAD: Normocephalic. EYES: Pupils normal. Conjunctivae are normal. NOSE AND THROAT: Normal. NECK: JVP low. Carotids equal. THORAX: AP diameter normal. LUNGS: Clear. CARDIOVASCULAR: S1, S2. ABDOMEN: Soft, nontender, no organomegaly. EXTREMITIES: No clubbing, no cyanosis. LABORATORY DATA: WBC 8.6, hemoglobin 11.9, hematocrit 34.7, platelets 178, sugar 198. Troponin less than 0.01. Triglyceride 100, cholesterol 131. TSH 0.93. DIAGNOSES: Abnormal EKG suggestive of ST-T changes for ischemia, to rule out coronary artery disease , diabetes, obesity, uncontrolled diabetes, hypertension. PLAN: The patient will have stress test today. In the meantime, we will continue present therapy in cluding beta lj, lisinopril and gemfibrozil. Will follow with you. Echo has been already reque sted. Komal Dobson MD cc: [id number] TT: 08/26/2016 18:39:54 Confirmation # [id number] Dictation # [id number] willy
--- NOTE | 2016-08-26 18:52 | CON ---
DATE: 08/26/2016 ROOM: 376. HISTORY OF PRESENT ILLNESS: This is a 61-year-old female with known history of type 2 diabetes and h ypertension, admitted here with marked hyperglycemic accelerations and is now being referred for diab etic evaluation and management. PAST MEDICAL HISTORY: History of type 2 diabetes, currently on metformin given as 500 mg b.i.d. with Januvia given as 100 mg once daily. History of hypertensive cardiovascular disease and dyslipidemia , history of multiple sclerosis, history of diabetic polyneuropathy, currently using Neurontin medica tions. She also uses a cane for assistance in ambulation. SOCIAL HISTORY: The patient has supportive family. No known substance use. REVIEW OF SYSTEMS: As mentioned above, admits to generalized body weakness with easy fatigability an d tiredness and suboptimal energy level. Also admits to episodic dizziness and lightheadedness, wors e in the last few days prior to admission. No chest pains or palpitations or PNDs. Her oral intake is variable with occasional dyspepsia and vague upper abdominal pains. No recent alterations of erma l or urinary patterns. PHYSICAL EXAMINATION: GENERAL: An average built female in no apparent distress. VITAL SIGNS: Blood pressure of 140/80, pulse of 70 beats per minute and regular, temperature 98, res pirations 20. Height is 4 feet 11 inches, weight is 140 pounds. HEENT: Head normocephalic. Eyes anicteric with pink conjunctivae. Fundoscopy not possible at this time. Ears, nose and throat otherwise normal. NECK: Supple. Thyroid gland is normal size. No carotid bruits. No cervical adenopathy. CARDIOPULMONARY: Some adynamic precordium. S1, S2 is rapid and regular. LUNGS: Clear to auscultation. ABDOMEN: Flat, soft with positive bowel sounds. EXTREMITIES: No peripheral edema. Pulses are +2 bilaterally. LABORATORY DATA: Chemistries initially done: A BUN of 9, sodium 136, potassium 4.2, chloride 94, CO 2 21, glucose 470 and creatinine is 0.8. Her glucose values have ranged from 269 to 306 and 352 and 417 mg/dL. Her latest glucose values have ranged from 137-198 mg/dL. Her A1c is 8.9%. ASSESSMENT: This is a 61-year-old female with uncontrolled and decompensated type 2 insulin-requirin g diabetes, presenting here with recent hyperglycemic accelerations and currently optimally controlle d on a combination of oral hypoglycemic therapy as mentioned, and the possibility of secondary pancre atic failure has to be a possibility at this time. She also has significant multiple sclerosis, curr ently being followed closely by neurology and medical therapy thereof. PLAN OF MANAGEMENT: As discussed with the patient and the staff. We will modify her current regimen and actually add basal insulin with Levemir given as 8 units subQ at bedtime daily to start tonight. We will modify the coverage scale to obviate hypoglycemia and detailed orders have been given. We will also lower the metformin to 500 mg b.i.d. also because of her current weight and also to obviate GI related symptoms from the higher dose of the metformin, especially at the 1000 mg b.i.d. We will add Amaryl given as 2 mg b.i.d. before meals and increase the Januvia to 100 mg once daily in the mo rning before breakfast. We will titrate incrementally as indicated to optimize metabolic control. W e will initiate diabetic education and dietary instructions to include insulin self-administration at this time. Many times the patient responded very well to a triple oral hypoglycemic drug combinatio n and may eventually discontinue the basal insulin as her glycemic profile improved. However, if fas ting hyperglycemia persists, then she may need overnight basal insulin as ordered. We will obtain se rial chemistries and supplement accordingly as needed. We will follow. Margot Hughes MD cc: [id number] TT: 08/26/2016 18:51:33 Confirmation # [id number] Dictation # [id number] javid
[2016-08-26] MEDS ORDERED: Insulin Detemir 100 units/ml Vial (Levemir) SC SCH (22:00)
--- NOTE | 2016-08-26 22:03 | CARD ---
APPROVED REPORT Protocol: LEXISCAN Test Type: Lexiscan Sestamibi Stress Test Attending Physician: Dr. Komal Dobson Referring Physician: Dr. Qi Box Test Indications: Abnormal ECG Height:5 ft 0 in Weight:140lbs Medications: Tenormin, Rocephin, Colace, Neurontin, Lopid, Insulin, Zestril, Glucophage, Tecfidera, Januvia Medical History: 61 y/o female with a history of diabetes, htn Target HR: 157 bpm Resting ECG: RSR. ST_T Changes. Resting Heart Rate: 71 bpm Resting Blood Pressure: 156/90mmHg Submaximum (85%): 133 bpm PROCEDURE Pharmacologic stress testing was performed using 0.4mg per 5ml of regadenoson given intravenously over 7-10 seconds. POST EXERCISE Reason for Termination: Protocol completed Target HR: No Max HR: 98 bpm 67% of Maximum Predicted HR: 157 bpm Exercise duration: 00:42 min:sec, 0 Stage Exercise capacity: 1.0METs Max Blood Pressure: 156/90mmHg Blood Pressure response to exercise: resting hypertension - appropriate response Heart Rate response to exercise: appropriate Chest Pain: No, none Angina index: 0 Arrhythmia: No, none ST Change: No, none Deviation: 0 mm INTERPRETATION Stress EKG Conclusion: IV LEXISCAN NUCLEAR STRESS TEST NEGATIVE FOR CHEST PAIN AND NEGATIVE FOR ST-T CHANGES. NUCLEAR SCAN REPORT PENDING. Signed by Komal Dobson Electronically Approved: 08/26/2016 13:24:00 EXAM: Myocardial Perfusion REST/STRESS Stress Test Type: Pharmacologic Imaging Protocol Rest Spect myocardial perfusion imaging was performed in supine position 45 minutes following the injection of 10.8 mCi of Tc-99 Myoview. At peak stress, the patient was injected intravenously with 30.4mCi of Tc-99 tetrofosmin after an exercise time of 0 minutes and 10 seconds. Gated Stress Spect was performed 80 minutes after intravenous Tc-99 Myoview injection. The images were gated to evaluate regional wall motion and calculate ventricular ejection fraction.Images were reconstructed using backfilter projection method in short horizontal and verticle long axis. Spect slices were generated. LV Perfusion The quality of the study is good. The left ventricle is normal in size. The right ventricle is unremarkable. The lung uptake is within normal limits. The distribution of tracer reveals normal uptake pattern throughout the LV myocardium on the stress study. The rest myocardial perfusion study shows no significant change. Wall Motion Wall motion study shows good contractility of the left ventricle. LVEF = 80%. Conclusion 1. Normal SPECT myocardial perfusion study. 2. Normal gated wall motion of the left ventricle.
[2016-08-27] MEDS: guaiFENesin 100 mg/5 ml Syrup UD PO PRN (00:27)
[2016-08-27 08:16] LABS: HEMATOCRIT 33.1 % (36.0-48.0); MEAN CELL VOLUME 82.5 fL (80.0-105.0); MEAN CORPUSCULAR HEMOGLOBIN 27.4 pg (25.0-35.0); MEAN CORPUSCULAR HGB CONC 33.2 g/dl (31.0-37.0); MEAN PLATELET VOLUME 11.6 fl (7.0-11.0); RED CELL DISTRIBUTION WIDTH 13.8 % (11.5-14.5); WHITE BLOOD COUNT 5.3 10^3/ul (4.5-11.0)
[2016-08-27] MEDS: Albuterol-Ipratrop 3 mg / 0.5 (3 ml) UD IH SCH ×3 (08:19→20:33)
[2016-08-27] MEDS: Insulin Reg-LOW-Coverage SC SCH ×4 (08:40→21:47)
[2016-08-27 08:53] LABS: BLOOD UREA NITROGEN 8 mg/dL (7-21); CALCIUM 9.3 mg/dL (8.4-10.5); CARBON DIOXIDE 29 mmol/L (21-33); CHLORIDE 102 mmol/L (98-107); GFR AFRICAN-AMERICAN > 60; GLUCOSE,RANDOM 208 mg/dL (70-110); POTASSIUM 3.9 mmol/L (3.6-5.0); SODIUM 138 mmol/L (132-148)
[2016-08-27] MEDS: cefTRIAXone 1 gm 1 GM/100 ML BAG IVPB SCH (09:32)
[2016-08-27] MEDS: DIMETHYL FUMARATE 240 MG PO SCH ×2 (09:35→19:49)
--- NOTE | 2016-08-27 15:42 | PN ---
DATE: 08/27/2016 SUBJECTIVE: The patient seen and examined on the bedside, looks comfortable. According to her, she is feeling better. Sugar is coming down. No nausea, vomiting, diarrhea. No hematuria, hematochezia. No fever, no chills. No headache, no dizziness. No chest pain, no shortness of breath. PHYSICAL EXAMINATION: VITAL SIGNS: Temperature 97.6, pulse 80, blood pressure 123/72, respiratory rate 18. HEENT: Head normocephalic, atraumatic. Eyes PERRLA. Extraocular muscles intact. Conjunctivae clear. Nose patent. Mucous membranes moist. NECK: Supple. No carotid bruit. No JVD or thyromegaly. CHEST: Bilaterally symmetrical. HEART: S1, S2 positive. LUNGS: Clear to auscultation. ABDOMEN: Soft. Bowel sounds positive. No organomegaly. EXTREMITIES: No edema, no cyanosis. NEUROLOGIC: The patient is awake, alert, moving all 4 extremities. No focal deficit. MEDICATIONS: Amaryl, Colace, DuoNeb, Glucophage, insulin siding scale, Januvia , Levemir, Lopid, Neurontin, Robitussin, Rocephin, Singulair. LABORATORY DATA: White blood cells 5.3, hemoglobin 11.0, hematocrit 33.1, platelets 169. Sugar 244, 235, 208. Sodium noted , potassium 3.9, BUN 8, creatinine 0.8, calcium 9.3. Hemoglobin A1c is 8.9. ASSESSMENT AND PLAN: The patient has history of MS, noncompliant, urged to be compliant. Seen by blood tester fowl, Dr. Margot Hughes, Dr. Nayak and Dr. Dobson also. Obstructive sleep apnea syndrome, chronic obstructive pulmonary disease. Dr. Nayak increased the prednesone . Continue continuous positive airway pressure while sleeping, bronchodilator. Gastric prophylaxis. Deep venous thrombosis prophylaxis. Fall precautions. Upper respiratory infection getting better. Actually, we failed outpatient treatment for upper respiratory tract infection and bronchitis. The patient finished course of antibiotics as outpatient but still was symptomatic so she came in the hospital. Discussion done with Dr. Nayak. Gastrointestinal, deep venous thrombosis prophylaxis. Repeat labs. We will follow up. Qi Charu MD cc: [id number] TT: 08/27/2016 15:42:21 Confirmation # [id number] Dictation # [id number] sn MTDD
--- NOTE | 2016-08-27 16:18 | PN ---
DATE: 08/27/2016 ROOM: 376 This is a 61-year-old female with recent uncontrolled type 2 insulin-requiring diabetes, presenting h ere with marked hyperglycemic accelerations despite an outpatient drug combination of Januvia and met formin as given. She noted recent hyperglycemic accelerations over the past few days prior to admiss ion. Her latest chemistries done today showed a BUN of 8, sodium 138, potassium 3.9, chloride 102, CO2 29, glucose 208 and creatinine 0.8. Her glucose values have ranged from 235-244 mg/dL today. It was 33 0-362 at bedtime last night. So at this time, we will modify once again her basal insulin and increase the Levemir to 12 units sub Q at bedtime daily to start tonight as ordered. We will continue the low-dose correction scale using Humalog insulin as ordered. We will obtain a consult with our diabetic nurse educator to teach the patient insulin self-administration as she may possibly go home on insulin and this was actually disc ussed with the patient this morning when I made bedside rounds. We will continue her Januvia and met formin given as 100 mg daily and metformin as 500 mg b.i.d. as ordered. We will actually also contin ue the Amaryl and now at the higher dose of 4 mg b.i.d. to start today as ordered. We will titrate i ncrementally as indicated to optimize metabolic control. We will obtain serial chemistries and suppl ement accordingly as needed. We will follow. Margot Hughes MD cc: [id number] TT: 08/27/2016 16:17:27 Confirmation # [id number] Dictation # [id number] en
--- NOTE | 2016-08-27 16:32 | PN ---
DATE: 08/27/2016 REASON FOR CONSULTATION AND FOLLOWUP: Uncontrolled diabetes, abnormal EKG, cardiac evaluation. BRIEF CLINICAL HISTORY: This 61-year-old obese female with a past medical history significant for di abetes, hypertension, hyperlipidemia 20 years, admitted with uncontrolled diabetes, abnormal EKG. Th e patient underwent a stress test, normal. Denies any chest pain, shortness of breath, any palpitati on. PHYSICAL EXAMINATION: VITAL SIGNS: Temperature afebrile, heart rate 68, blood pressure 123/62. HEENT: PERRLA. Extraocular muscles intact. NECK: Supple. No carotid bruits. No thyromegaly. CHEST: Clear to auscultation. HEART: S1, S2 regular. ABDOMEN: Soft. EXTREMITIES: Clubbing and cyanosis negative. BLOOD WORKUP: As follows: WBC 5.3, hemoglobin 11, hematocrit 33.1, platelet count 169. Chemistry s hows sodium 130, potassium 3.9, chloride 102, carbon dioxide ____, anion gap of 11, BUN 8, creatinine 0.8. IMPRESSION: Uncontrolled diabetes, obesity, hypertension, hyperlipidemia. The patient underwent a s tress test that was normal myocardial perfusion study, ejection fraction 80%; uncontrolled diabetes, hypertension. RECOMMENDATION: Aggressive medical treatment. Follow up echo. Emphasis on weight reduction and com pliance with medication. We keep blood sugar fasting below 100 and postprandial below 140. Will fol low with you. Thank you, Dr. Box, for providing the opportunity in taking care of the patient. Will discontinue telemetry. Komal Valladares MD cc: [id number] TT: 08/27/2016 16:32:16 Confirmation # [id number] Dictation # [id number] mn
--- NOTE | 2016-08-27 18:27 | PN ---
DATE: 08/27/2016 REFERRING PHYSICIAN: Dr. Box. SUBJECTIVE: She is lying in the bed. Family is at bedside. Night was unremarkable. Tolerated CPAP well. Decreased cough, decreased shortness of breath. No nausea, no vomiting, no diarrhea, no sign ificant leg swelling. OBJECTIVE: GENERAL: No acute distress. VITAL SIGNS: Temperature is 98, heart rate is 68, respiratory rate is 20, blood pressure 123/72, pul se ox 99% on nasal cannula. HEENT: Moist mucous membrane. No ulcer or thrush noted. NECK: Supple. No JVD. LUNGS: Has scattered rhonchi. HEART: S1, S2. ABDOMEN: Soft, nontender. No organomegaly. EXTREMITIES: There is no edema. NEUROLOGIC: Awake, alert, follows simple commands. MEDICATIONS: She is on Amaryl 4 mg ACBD, Colace 100 mg b.i.d., dimethyl fumarate 240 mg twice a day, DuoNeb q. 6 hours, metformin 500 mg ACB, insulin coverage, Januvia 100 mg ACB, Levemir 20 units subQ at bedtime, Lipitor 600 mg twice a day, Neurontin is 100 mg 3 times a day, Robitussin is 100 mg q. 6 hours p.r.n., Rocephin 1 g IV daily, Singulair 10 mg daily, Tenormin 25 mg twice a day, Zestril 10 m g daily. LABORATORY DATA: Shows hemoglobin 11.0, hematocrit 33.1, WBC 5.3, platelet is 169. Sodium 138, pota ssium 3.9, chloride 102, bicarbonate 29, BUN 8, creatinine 0.8, glucose 208, calcium 9.3. IMPRESSION AND PLAN: Uncontrolled diabetes, hypertension, sleep apnea syndrome. Case discussed with Dr. Box this morning. Continue bronchodilator, continuous positive airway pressure while sleepin g. Gastric prophylaxis, deep venous thrombosis prophylaxis. Fall precaution. Out of bed to chair. Thank you and we will follow with you. Komal Nayak MD cc: [id number] TT: 08/27/2016 18:27:20 Confirmation # [id number] Dictation # [id number] ln
[2016-08-27] MEDS ORDERED: Insulin Detemir 100 units/ml Vial (Levemir) SC SCH (22:00)
[2016-08-27] MEDS: Cefepime 1gm in NS 100ml 1 GM/100 ML BAG IVPB SCH (22:16)
[2016-08-28] MEDS: Albuterol-Ipratrop 3 mg / 0.5 (3 ml) UD IH SCH ×3 (02:28→13:38)
[2016-08-28] MEDS: Cefepime 1gm in NS 100ml 1 GM/100 ML BAG IVPB SCH ×2 (05:36→15:29)
[2016-08-28] MEDS: Insulin Reg-LOW-Coverage SC SCH ×2 (07:30→12:28)
[2016-08-28 08:46] VITALS: BP 138/68; PULSE 64; RESP 18; TEMP 98.6; O2SAT 99
[2016-08-28] MEDS: DIMETHYL FUMARATE 240 MG PO SCH (11:33)
--- NOTE | 2016-08-28 12:31 | CP.PCM.CON ---
History of Present Illness - History of Present Illness History of Present Illness: 61 year old female with PMH of multiple sclerosis, HTN, dyslipidemia, history of right thigh abscess was initially admitted for hyperglycemia. She has been doing well but is complaining of cough. She was apparently given antibiotics as an outpatient but her coug continued. She denies SOB, no chest pain, no headache or dizziness, no fever or chills, no nausea or vomiting, no abdominal pain, no diarrhea, no dysuria. She denies animal exposure or contacts and denies travel outside of [place] in the past 3 months. Infectious diseases consult is requested to evaluate for possible bronchitis in this patient. Review of Systems - Review of Systems All systems: reviewed and no additional remarkable complaints except (as per HPI ) Past Patient History - Infectious Disease Hx of Infectious Diseases: None - Tetanus Immunizations Tetanus Immunization: Unknown - Past Medical History & Family History Past Medical History?: Yes - Past Social History Smoking Status: Never Smoked - CARDIAC Hx Cardiac Disorders: No Hx Hypertension: Yes - PULMONARY Hx Respiratory Disorders: No Hx Asthma: No - NEUROLOGICAL HX Cerebrovascular Accident: No - HEENT Hx HEENT Problems: No - RENAL Hx Chronic Kidney Disease: No - ENDOCRINE/METABOLIC Hx Diabetes Mellitus Type 2: Yes - HEMATOLOGICAL/ONCOLOGICAL Hx Blood Disorders: No - INTEGUMENTARY Hx Dermatological Problems: No - MUSCULOSKELETAL/RHEUMATOLOGICAL Hx Falls: Yes - GASTROINTESTINAL Hx Gastrointestinal Disorders: No - GENITOURINARY/GYNECOLOGICAL Hx Genitourinary Disorders: No - PSYCHIATRIC Hx Psychophysiologic Disorder: No Hx Depression: No Hx Emotional Abuse: No Hx Physical Abuse: No - SURGICAL HISTORY Other/Comment: Pt stated she had Left fatty tissue removed FROM UNDER HER ARMS. Colonoscopy-May 2016 - ANESTHESIA Hx Anesthesia: Yes Hx Anesthesia Reactions: No Hx Malignant Hyperthermia: No Meds Allergies/Adverse Reactions: Allergies Allergy/AdvReac Type Severity Reaction Status Date / Time No Known Allergies Allergy Verified 06/15/16 10:50 - Medications Medications: Current Medications Albuterol/Ipratropium (Duoneb 3 Mg/0.5 Mg (3 Ml) Ud) 3 ml IH [id number] [facility] Last Admin: 08/27/16 20:33 Dose: 3 ml Atenolol (Tenormin) 25 mg PO BID [facility] Last Admin: 08/27/16 17:26 Dose: 25 mg Docusate Sodium (Colace) 100 mg PO BID [facility] Last Admin: 08/27/16 17:24 Dose: 100 mg Gabapentin (Neurontin) 100 mg PO TID [facility] PRN Reason: Protocol Last Admin: 08/27/16 17:25 Dose: 100 mg Gemfibrozil (Lopid) 600 mg PO BID [facility] Last Admin: 08/27/16 17:25 Dose: 600 mg Glimepiride (Amaryl) 4 mg PO ACBD [facility] Last Admin: 08/27/16 17:24 Dose: 4 mg Guaifenesin (Robitussin) 100 mg PO Q6 PRN PRN Reason: Cough Last Admin: 08/27/16 00:27 Dose: 100 mg Cefepime HCl (Maxipime 1gm) 1 gm in 100 mls @ 100 mls/hr IVPB Q8 [facility] PRN Reason: Protocol Stop: 09/05/16 22:01 Last Admin: 08/27/16 22:16 Dose: 100 mls/hr Insulin Detemir (Levemir) 12 unit SC [facility] Insulin Human Regular (Humulin R Low) 0 units SC [facility] PRN Reason: Protocol Last Admin: 08/27/16 21:47 Dose: Not Given Lisinopril (Zestril) 10 mg PO Q12 [facility] Last Admin: 08/27/16 21:48 Dose: 10 mg Metformin HCl (Glucophage) 500 mg PO ACBD [facility] Last Admin: 08/27/16 17:24 Dose: 500 mg Montelukast Sodium (Singulair) 10 mg PO [facility] Last Admin: 08/27/16 21:48 Dose: 10 mg Non-Formulary Medication (Dimethyl Fumarate [Tecfidera]) 240 mg PO BID [facility] Last Admin: 08/27/16 19:49 Dose: Not Given Sitagliptin Phosphate (Januvia) 100 mg PO B [facility] Last Admin: 08/27/16 08:41 Dose: 100 mg Physical Exam - Constitutional Appears: Non-toxic, No Acute Distress - Head Exam Head Exam: NORMAL INSPECTION - ENT Exam ENT Exam: Mucous Membranes Moist - Neck Exam Neck exam: Negative for: Lymphadenopathy, Meningismus - Respiratory Exam Respiratory Exam: Decreased Breath Sounds - Cardiovascular Exam Cardiovascular Exam: +S1, +S2 - GI/Abdominal Exam GI & Abdominal Exam: Soft. absent: Tenderness Results - Vital Signs Recent Vital Signs: Last Vital Signs Temp 98.4 F 08/27/16 16:00 Pulse 79 08/27/16 21:48 Resp 20 08/27/16 16:00 BP 137/76 08/27/16 21:48 Pulse Ox 100 08/27/16 16:00 - Labs Result Diagrams: 08/27/16 07:30 08/27/16 07:30 Labs: Laboratory Results - last 24 hr 08/27/16 15:51 POC Glucose (mg/dL) 174 H Assessment & Plan - Assessment and Plan (Free Text) Plan: Assessment consider acute bronchitis, clinically improving hyperglycemia history of right thigh abscess/ skin and skin structure infection S/P I and D in the emergency department, growing group B streptococci multiple sclerosis HTN dyslipidemia Plan started on Cefepime; follow up blood cx and procalcitonin; reviewed CXR which did not show pneumonia will continue to monitor clinical reponse
--- NOTE | 2016-08-28 19:35 | PN ---
DATE: 08/28/2016 LOCATION: Room 375, bed 1. REASON FOR CONSULTATION AND FOLLOWUP: Uncontrolled diabetes, abnormal EKG, cardiac evaluation. HISTORY OF PRESENT ILLNESS: The patient is a 61-year-old obese female with a past medical history si gnificant for diabetes, hypertension, hyperlipidemia, admitted with uncontrolled diabetes and was fou nd to have an abnormal EKG. The patient underwent a stress test, which was normal. The patient is s itting comfortably without any chest pain, shortness of breath or palpitations. PHYSICAL EXAMINATION: VITAL SIGNS: Blood pressure is 138/68, respirations 18, pulse 64, temperature 98.6. HEAD: Normocephalic. EYES: Pupils normal. Conjunctivae normal. NOSE AND THROAT: Normal. NECK: JVP low. Carotid equal. THORAX: AP diameter normal. LUNGS: Clear. CARDIOVASCULAR: S1, S2. ABDOMEN: Soft, nontender, no organomegaly. Bowel sounds normal. EXTREMITIES: No clubbing, no cyanosis. LABORATORY DATA: WBC 5.3, hemoglobin 11.0, hematocrit 33.1, platelets 169. Random sugar 214. Sodiu m 138, potassium 3.9, BUN 8, creatinine 0.8, calcium 9.3. TSH 1.60. DIAGNOSES: Uncontrolled diabetes mellitus, obesity, hypertension, hyperlipidemia. PLAN: The patient's stress test is negative with a normal LV ejection fraction of 80%. Will continu e present therapy and again stressed to the patient to lose weight, follow her medicines and follow w ith a physician . Komal Dobson MD cc: [id number] TT: 08/28/2016 19:34:32 Confirmation # [id number] Dictation # [id number] dn
--- NOTE | 2016-08-28 20:23 | PN ---
DATE: 08/28/2016 LOCATION: Room 376. This is a 61-year-old female with recent uncontrolled type 2 insulin-requiring diabetes, now being fo llowed closely for metabolic management. She also has concomitant multiple sclerosis and is stable a t this time. Her glycemic levels are fluctuating, but much improved at this time with the initiation of insulin therapy as given. Her glucose values are low-normal today ranging from 89-214 mg/dL. It was 66 at bedtime last night. Her latest chemistries include a BUN of 8, sodium 138, potassium 3.9, chloride 102, CO2 of 29, glucose 208 and creatinine 0.8. So, at this time, will actually discontinu e now her Levemir given overnight as 8 units at bedtime as she remarkably improved as noted. Will co ntinue, however, the triple oral hypoglycemic drug therapy with Januvia given as 100 mg daily and met formin at 500 mg b.i.d. and Amaryl given as 4 mg b.i.d. before meals. She will follow with her medic al doctor for ongoing diabetic and medical followup on the outpatient. She is scheduled for possible discharge today. Will follow. Margot Hughes MD cc: [id number] TT: 08/28/2016 20:22:21 Confirmation # [id number] Dictation # [id number] ketan
--- NOTE | 2016-08-28 20:27 | PN ---
DATE: 08/28/2016 REFERRING PHYSICIAN: Dr. Box. SUBJECTIVE: She is lying in the bed, head at 45 degrees. Night was unremarkable. Tolerated CPAP we ll. Cough is better. No nausea, no vomiting, no diarrhea. No leg pain or leg swelling. OBJECTIVE: GENERAL: No acute distress. VITAL SIGNS: Temp is 98, heart rate is 64, respiratory rate is 18, blood pressure 138/68, pulse ox 9 9% on room air. HEENT: Moist mucous membrane. No ulcer or oral thrush noted. NECK: Supple. No JVD. LUNGS: Have a few scattered rhonchi. Overall, fair airflow. HEART: S1, S2. ABDOMEN: Soft, nontender. No organomegaly. EXTREMITIES: There is no edema. NEUROLOGIC: Awake, alert, follows simple command. MEDICATIONS: She is on Amaryl 4 mg daily, Colace 100 mg twice a day, also getting Tecfidera 240 mg t wice a day, DuoNeb q. 6 hours, metformin 500 mg a.c.b.d., insulin coverage, Januvia 100 mg daily, Lev jordi 12 units subQ at bedtime which is on hold, Lopid 600 mg twice a day, cefepime 1 g IV q. 8 hours, Neurontin 100 mg 3 times a day, Robitussin 100 mg q. 6 hours, Singulair 10 mg daily, Tenormin 25 mg twice a day, Zestril 10 mg twice a day. LABORATORY DATA: Shows blood sugar 214. IMPRESSION AND PLAN: Uncontrolled diabetes, hypertension, sleep apnea syndrome. Case discussed with Dr. Box, also spoke to nursing staff. The patient wants to go home. Will discharge her. Recomm ended to use CPAP while sleeping, outpatient PFT. Continue her home medication for MS. Need to see Dr. Box next week. Thank you and will follow with you. Komal Nayak MD cc: [phone] TT: 08/28/2016 20:26:24 Confirmation # [id number] Dictation # [id number] efrain
--- NOTE | 2016-09-01 11:32 | CARD ---
APPROVED REPORT EXAM: Two-dimensional and M-mode echocardiogram with Doppler and color Doppler. INDICATION Chest Pain 2D DIMENSIONS Left Atrium (2D)2.9 (1.6-4.0cm)IVSd1.4 (0.7-1.1cm) LVDd3.3 (3.9-5.9cm)PWd1.3 (0.7-1.1cm) LVDs2.5 (2.5-4.0cm)FS (%) 25.9 % LVEF (%)52.2 (>50%) M-Mode DIMENSIONS Aortic Root2.70 (2.2-3.7cm)Aortic Cusp Exc.1.40 (1.5-2.0cm) Aortic Valve AoV Peak Oitkxinb313.0cm/Isabelle Peak GR.5mmHg Mitral Valve MV E Zxgewhyh50.3cm/sMV A Isaxjbfi91.0cm/sE/A ratio0.9 TDI E/Lateral E'0.0E/Medial E'0.0 Tricuspid Valve TR Peak [id number]/sRAP [id number] Peak Gr.18mmHg [id number] LEFT VENTRICLE The left ventricle is normal size. There is normal left ventricular wall thickness. The left ventricular function is normal.EF-65% There is normal LV segmental wall motion. Transmitral Doppler flow pattern is Grade III-reversible restrictive diastolic dysfunction. No left ventricle thrombus noted on this study. There is no ventricular septal defect visualized. There is no left ventricular aneurysm. There is no mass noted in the left ventricle. RIGHT VENTRICLE The right ventricle is normal size. There is normal right ventricular wall thickness. The right ventricular systolic function is normal. ATRIA The left atrium size is normal. The right atrium size is normal. The interatrial septum is intact with no evidence for an atrial septal defect. AORTIC VALVE The aortic valve is thickened but opens well. No aortic regurgitation is present. There is no aortic valvular stenosis. There is no aortic valvular vegetation. MITRAL VALVE The mitral valve is thickened but opens well. Mitral regurgitation is trace. There is no mitral valve stenosis. There is no evidence of mitral valve prolapse. TRICUSPID VALVE The tricuspid valve leaflets are thickened , but open well. There is trace tricuspid regurgitation.RVSP-28 mmof hg. There is no tricuspid valve stenosis. There is no tricuspid valve prolapse or vegetation. PULMONIC VALVE The pulmonary valve is normal in structure. There is no pulmonic valvular regurgitation. There is no pulmonic valvular stenosis. GREAT VESSELS The aortic root is normal in size. The ascending aorta is normal in size. The pulmonary artery is normal. The IVC is normal in size and collapses >50% with inspiration. PERICARDIAL EFFUSION There is no pleural effusion. There is no pericardial effusion. <Conclusion> Normal chamber Size. Ef-65% Trace MR/TR RVSP-28 mmof Hg.
--- NOTE | 2016-10-19 13:07 | DS ---
CHIEF COMPLAINT: High blood pressure, not feeling very well. HISTORY OF PRESENT ILLNESS: Ms. Vidales is a 61-year-old my private patient, history of diabetes mellitus on Januvia, hypertension, multiple sclerosis came to the emergency room complaining of elevated blood sugar level. The patient is noncompliant with the medication and checking of the sugar. She denies any fever, chills, chest pain. No nausea, vomiting or diarrhea. We admitted the patient, did a stress test. Seen by Dr. Nayak and Dr. Saul Frost, endocrinology; Dr. Valladares, brainer. Improved. Discharged home. Followup with primary care physician, brainer, nursing care partner and neurologist for MS and transcriptionist for uncontrolled diabetes mellitus. PAST MEDICAL HISTORY: Hypertension, asthma, diabetes mellitus type 2, history of musculoskeletal pain, and ataxia. FAMILY HISTORY: Father, mother noncontributory. HABITS: Never smoked. No drugs, no ethanol. ALLERGIES: The patient is not allergic to any medications. HOME MEDICATIONS: Januvia, Tenormin, Lopid, Glucophage, and Neurontin. REVIEW OF SYSTEMS: The patient is seen and examined on the bedside, looking comfortable. No nausea, vomiting, or diarrhea. No hematuria or hematochezia. No swelling of the leg. No chest pain. No palpitations. No headache. No dizziness. sleep very well. Cough is better. PHYSICAL EXAMINATION: VITAL SIGNS: Temperature 98, heart rate 64, respiratory rate 18, blood pressure 138/68 and pulse oximetry 98% on room air. HEENT: Head is normocephalic, atraumatic. Eyes, PERRLA, extraocular muscles intact. Conjunctivae are clear. Nose is patent. Mucous membrane moist. NECK: Supple. No carotid bruits or thyromegaly. CHEST: Bilaterally symmetrical. HEART: S1 and S2 positive. LUNGS: Clear to auscultation. Overall fair air flow. ABDOMEN: Soft and nontender. No organomegaly. EXTREMITIES: No edema. No cyanosis. NEUROLOGIC: The patient is awake and alert. Follow simple commands. Cranial nerves II-XII are grossly intact. Moving all four extremities. MEDICATIONS: Amaryl, Colace, DuoNeb, metformin, insulin coverage, Levemir, Januvia, cefepime, Neurontin, Robitussin, Singulair, Tenormin, Zestril. LABORATORY DATA: White blood cell is 5.3, hemoglobin 11.0, hematocrit 33.1 and platelets 169. Glucose noted . Sodium 138, potassium 3.9, BUN 8, creatinine 0.8, random glucose 208. ASSESSMENT AND PLAN: a 61-year-old lady with multiple medical problems, uncontrolled diabetes mellitus and noncompliant. Education done. Urged to check sugar and take medication and follow with transcriptionist. Hypertension, sleep apnea syndrome, multiple sclerosis, obesity, rule out obstructive sleep apnea syndrome, need PFT as outpatient. Continue home medications. went for stress test reviewed by me. Hypertension, uncontrolled; hypercholesterolemia, hypertriglyceridemia. Stress test was negative with a normal LV function with an ejection fraction of 80%. Urged to loose weight. Acute bronchitis, history of right thigh abscess infection as the incision and drainage in the emergency room department growing the Streptococci. Multiple sclerosis. GI and DVT prophylaxis. We will followup as an outpatient. Qi Box MD 10/19/2016 PING
== END 2016-08-28 17:50 | disposition home or self-care (01) | DRG 639 ==
LOC: ED 23:02 → ERH 08-25 02:13 → 3RSO 08-25 04:04 → OBSVTOIN 08-27 14:56
PROVIDERS: ADMIT Internal Medicine; ATTEND Internal Medicine
DX: E11.65 Type 2 diabetes mellitus with hyperglycemia (principal); E11.42 Type 2 diabetes mellitus with diabetic polyneuropathy; E66.01 Morbid (severe) obesity due to excess calories; I11.9 Hypertensive heart disease without heart failure; W01.0XXA Fall on same level from slipping, tripping and stumbling without subsequent striking against object, initial encounter; D64.9 Anemia, unspecified; E78.00 Pure hypercholesterolemia, unspecified; E78.1 Pure hyperglyceridemia; E78.5 Hyperlipidemia, unspecified; F32.89 Other specified depressive episodes; G35 Multiple sclerosis; G47.33 Obstructive sleep apnea (adult) (pediatric); J06.9 Acute upper respiratory infection, unspecified; J44.9 Chronic obstructive pulmonary disease, unspecified; Z79.4 Long term (current) use of insulin; Z79.899 Other long term (current) drug therapy; Z91.14 Patient's other noncompliance with medication regimen; Z91.19 Patient's noncompliance with other medical treatment and regimen; R26.81 Unsteadiness on feet; R40.2412 Glasgow coma scale score 13-15, at arrival to emergency department; J20.9 Acute bronchitis, unspecified; F43.20 Adjustment disorder, unspecified; F06.30 Mood disorder due to known physiological condition, unspecified; Y92.230 Patient room in hospital as the place of occurrence of the external cause; R94.31 Abnormal electrocardiogram [ECG] [EKG]

== ENCOUNTER 2018-05-12 17:42 | Emergency (ER) | payer MEDICARE ==
[2018-05-12 17:42] VITALS: BMI 28.3
[2018-05-12 17:52] VITALS: BP 116/76; PULSE 72; RESP 18; TEMP 97.7; O2SAT 100
--- NOTE | 2018-05-12 18:16 | ED PDOC ---
Arrival/HPI - General Chief Complaint: Eye Problem Time Seen by Provider: 05/12/18 17:59 Historian: Patient - History of Present Illness Narrative History of Present Illness (Text): 05/12/18 18:13 62 yo F w/ PMH of DM and HTN, presents c/o redness to the lateral aspect of the R eye which she noticed this AM. Reports no trauma, injury, headache, d/c, fever, URI, eye pain, decrease in vision, no FB sensation. Has no other compla ints. Past Medical History - Infectious Disease Hx of Infectious Diseases: None - Tetanus Immunization Tetanus Immunization: Unknown - Cardiac Hx Cardiac Disorders: Yes Hx Hypertension: Yes - Pulmonary Hx Respiratory Disorders: No - Neurological Hx Neurological Disorder: Yes Hx Multiple Sclerosis: Yes Other/Comment: Multiple sclerosis - HEENT Hx HEENT Disorder: No - Renal Hx Renal Disorder: No - Endocrine/Metabolic Hx Endocrine Disorders: Yes Hx Diabetes Mellitus Type 2: Yes - Hematological/Oncological Hx Blood Disorders: No - Integumentary Hx Dermatological Disorder: No - Musculoskeletal/Rheumatological Hx Musculoskeletal Disorders: Yes Hx Falls: Yes Hx Unsteady Gait: Yes (PT. HAS MS) Other/Comment: Multiple sclerosis, uses cane - Gastrointestinal Hx Gastrointestinal Disorders: No - Genitourinary/Gynecological Hx Genitourinary Disorders: No - Psychiatric Hx Psychophysiologic Disorder: No Hx Substance Use: No - Past Surgical History Past Surgical History: No Previous - Surgical History Other/Comment: Pt stated she had Left fatty tissue removed FROM UNDER HER ARMS. Colonoscopy-May 2016 - Anesthesia Hx Anesthesia: Yes Hx Anesthesia Reactions: No Hx Malignant Hyperthermia: No - Suicidal Assessment Feels Threatened In Home Enviroment: No Family/Social History Family/Social History: No Known Family HX Smoking Status: Never Smoked Hx Alcohol Use: No Hx Substance Use: No Hx Substance Use Treatment: No Allergies/Home Meds Allergies/Adverse Reactions: Allergies No Known Allergies Allergy (Verified 05/12/18 17:48) Home Medications: Home Meds Medication Instructions Recorded Confirmed Sitagliptin Phosphate [Januvia] 100 mg PO DAILY 05/12/13 05/12/18 Dorzolamide HCl/Timolol Maleat 1 drop BOTHEYES DAILY 05/06/17 05/12/18 [Dorzolamide-Timolol Eye Drops] Enalapril Maleate [Vasotec] 1 tbs PO DAILY 05/06/17 05/12/18 GlipiZIDE [Glucotrol] 1 tab PO DAILY 05/06/17 05/12/18 Linaclotide [Linzess] 1 tab PO DAILY 05/06/17 05/12/18 Metoprolol Succinate 1 tab PO DAILY 05/06/17 05/12/18 metFORMIN [glucOPHAGE] 1,000 mg PO ACBD 05/06/17 05/12/18 Review of Systems - Review of Systems Constitutional: absent: Fatigue, Fevers Eyes: Other (+redness to the R eye). absent: Vision Changes, Photophobia, Eye Pain Respiratory: absent: SOB, Cough Skin: absent: Rash, Skin Lesions Neurological: absent: Headache, Dizziness Physical Exam Vital Signs Temp Pulse Resp BP Pulse Ox 05/12/18 17:50 97.7 F 72 18 116/76 100 Temperature: Afebrile Blood Pressure: Normal Pulse: Regular Respiratory Rate: Normal Appearance: Positive for: Well-Appearing, Non-Toxic, Comfortable Pain Distress: None Mental Status: Positive for: Alert and Oriented X 3 - Systems Exam Head: Present: Atraumatic, Normocephalic Pupils: Present: PERRL Extroacular Muscles: Present: EOMI Conjunctiva: Present: Other (+subconjunctival hemorrhage noted to the lateral portion of the R eye, no d/c, no eyelid swelling) Mouth: Present: Moist Mucous Membranes Neurological: Present: GCS=15, CN II-XII Intact, Speech Normal Skin: Present: Warm, Dry, Normal Color. No: Rashes Psychiatric: Present: Alert, Oriented x 3, Normal Insight, Normal Concentration Medical Decision Making ED Course and Treatment: 05/12/18 18:18 Diagnosis of subconjunctival hemorrhage explained to the patient. Advised that her symptoms will improve with time. Advised to follow up with primary care physician in 1-2 days without fail. Return to the emergency room at any time for any new or worsening symptoms. Patient states she fully agrees with and understands discharge instructions. States that she agrees with the plan and disposition. Verbalized and repeated discharge instructions and plan. I have given the patient opportunity to ask any additional questions. - PA / [employer] INSPECTOR / Resident Statement MD/DO has reviewed & agrees with the documentation as recorded. Disposition/Present on Arrival - Present on Arrival Any Indicators Present on Arrival: Yes History of DVT/PE: No History of Uncontrolled Diabetes: Yes Urinary Catheter: No History of Decub. Ulcer: No History Surgical Site Infection Following: None - Disposition Have Diagnosis and Disposition been Completed?: Yes Diagnosis: Subconjunctival hemorrhage of right eye Disposition: HOME/ ROUTINE Disposition Time: 18:15 Patient Plan: Discharge Condition: STABLE Discharge Instructions (ExitCare): Subconjunctival Hemorrhage Additional Instructions: Thank you for letting us take care of you today. You were treated for subconjunctival hemorrhage. The emergency medical care you received today was directed at your acute symptoms. It may take several days for your symptoms to resolve. Return to the Emergency Department if your symptoms worsen, do not improve, or if you have any other problems. Please contact your doctor in 2 days for re-evaluation and follow up. Bring any paperwork you were given at discharge with you along with any medications you are taking to your follow up visit. Our treatment cannot replace ongoing medical care by a primary care provider (PCP) outside of the emergency department. Thank you for allowing the [facility] team to be part of your care today. Forms: [employer] (Green[place]ic)
== END 2018-05-12 19:00 | disposition home or self-care (01) ==
LOC: ED 17:42
DX: H11.31 Conjunctival hemorrhage, right eye (principal)